=== PATIENT | male | born 1955 | race Two or more races ===

== ENCOUNTER 2024-12-16 11:06 | Inpatient (IN) | payer OTHER, MEDICARE ==
[~2024-12-16] VITALS: Ht 180.3 cm; Wt 74.6 kg
--- NOTE | 2024-12-16 11:16 | ED.PDOC ---
History of Present Illness HPI Comments 69 year male with a Hx of Parkinson's, Dementia, GERD, Thyroid, and High Lipids, was BIBA for the c/c of Generalized Weakness with associated /D. Pt states his symptoms has been onset for the past couple of days with no alleviating factors at this time. Pt states that is daughter took his BP at home and it read in the low 90's. EMS states pt is responding well to IV Fluids at this time. Pt denies any N/V or other symptoms or modifying factors reported at this time. Patient is alert and oriented x4 and has a stable gait. Time Seen by MD: 11:09 Reviewed Notes: Nurses Notes, Radiation Therapy Technologist Notes, Medications, Allergies Allergies: Coded Allergies: NO KNOWN ALLERGIES (Unverified , 12/16/24) Information Source: Patient, Emergency Med Personnel Mode of Arrival: EMS Severity: Moderate Timing: Days Duration: Since onset, Days Prehospital treatment: 12 Lead EKG, IVF Past Medical History PAST MEDICAL HISTORY: GERD, High Lipids, Thyroid Surgical History: Hernia Repair Family History Family History: Reviewed,noncontributory to illness, No family hx of Cancer, No family hx of DM, No family hx of Heart vimal, No family hx of HTN, No family hx ofKidney vimal, No family hx of Liver vimal, No family hx of Lung vimal, No family hx of Stroke Social History Smoker: Non-Smoker Alcohol: Denies ETOH Use Drugs: Denies Drug Use Lives In: Home Constitutional: reports: weakness; denies: chills, diaphoresis, fatigue, fever, malaise, sweats, others EENTM: denies: blurred vision, double vision, ear bleeding, ear discharge, ear drainage, ear pain, ear ringing, eye pain, eye redness, hearing loss, mouth pain, mouth swelling, nasal discharge, nose bleeding, nose congestion, nose pain, photophobia, tearing, throat pain, throat swelling, voice changes, others Respiratory: denies: cough, hemoptysis, orthopnea, SOB at rest, shortness of breath, SOB with excertion, stridor, wheezing, others Cardiovascular: denies: chest pain, dizzy spells, diaphoresis, Dyspnea on exertion, edema, irregular heart beat, left arm pain, lightheadedness, palpitations, PND, syncope, others Gastrointestinal: reports: diarrhea; denies: abdomen distended, abdominal pain, blood streaked bowels, constipated, dysphagia, difficulty swallowing, hematemesis, melena, nausea, poor appetite, poor fluid intake, rectal bleeding, rectal pain, vomiting, others Genitourinary: denies: burning, dysuria, flank pain, frequency, hematuria, incontinence, penile discharge, penile sore, pain, testicle pain, testicle swelling, urgency, others Neurological: denies: dizziness, fainting, headache, left sided numbness, left sided weakness, numbness, paresthesia, pre-existing deficit, right sided numbness, right sided weakness, seizure, speech problems, tingling, tremors, weakness, others Musculoskeletal: denies: back pain, gout, joint pain, joint swelling, muscle pain, muscle stiffness, neck pain, others Integumetry: denies: bruises, change in color, change in hair/nails, dryness, laceration, lesions, lumps, rash, wounds, others Allergic/Immunocompromised: denies: Difficulty Healing, Frequent Infections, Hives, Itching, others Hematologic/Lymphatic: denies: anemia, blood clots, easy bleeding, easy bruising, swollen glands, others Endocrine: denies: excessive hunger, excessive sweating, excessive thirst, excessive urination, flushing, intolerance to cold, intolerance to heat, unexplained weight gain, unexplained weight loss, others Psychiatric: denies: anxiety, bipolar disorder, depression, hopeless, panic disorder, schizophrenia, sleepless, suicidal, others All Other Systems: Reviewed and Negative Physical Exam General Appearance: Moderate Distress HEENT: Normal ENT Inspection, Pharynx Normal, TMs Normal Neck: Full Range of Motion, Non-Tender, Normal, Normal Inspection Respiratory: Chest Non-Tender, Lungs Clear, No Accessory Muscle Use, No Respiratory Distress, Normal Breath Sounds Cardiovascular: No Edema, No JVD, No Murmur, No Gallop, Normal Peripheral Pulses, Regular Rate/Rhythm Breast Exam: Deferred Gastrointestinal: Diffuse, No Organomegaly, No Pulsatile Mass, Normal Bowel Sounds, Soft, Tenderness Genitalia: Deferred Pelvic: Deferred Rectal: Deferred Extremities: No calf tenderness, Normal capillary refill, Normal inspection, Normal range of motion, Non-tender, No pedal edema Musculoskeletal : Apperance: Normal Neurologic: Alert, manager delivery II-XII nml as Tested, Motor Weakness, Normal Affect, Normal Mood, No Sensory Deficits Cerebellar Function: Normal Reflexes: Normal Skin: Dry, Pallor, Warm Lymphatic: No Adenopathy Was a procedure done? Was a procedure done?: No EKG EKG : Pulse Rate (adult): 62 Peterson: Normal Cardiac Rhythm: NSR Block: None ST: Nonsp Differential Dx Considerations may include: Generalized weakness, electrolyte imbalance, diarrhea, dehydration X-Ray, Labs, Meds, VS Vital Signs Date Time Temp Pulse Resp B/P (MAP) Pulse Ox O2 Delivery O2 Flow Rate FiO2 12/16/24 12:01 62 12/16/24 11:24 62 12/16/24 11:21 61 16 97 Room Air* 0 21 12/16/24 11:21 97.6 61 16 100/47 (64) 97 97.6 12/16/24 11:16 97.3 63 16 109/52 (71) 98 97.3 Lab Test 12/16/24 12:02 12/16/24 11:21 Range/Units White Blood Count 6.4 4.4-10.8 10^3/uL Red Blood Count 3.54 L 4.5-5.90 10^6/uL Hemoglobin 11.3 L 13.5-17.5 g/dL Hematocrit 32.7 L 41.0-53.0 % Mean Corpuscular Volume 92.4 80.0-100.0 fL Mean Corpuscular Hemoglobin 31.9 28.0-32.0 pg Mean Corpuscular Hemoglobin Concent 34.5 32.0-36.0 g/dL Red Cell Distribution Width 13.4 11.8-14.3 % Platelet Count 161 140-450 10^3/uL Mean Platelet Volume 9.7 6.9-10.8 fL Neutrophils (%) (Auto) 69.8 37.0-80.0 % Lymphocytes (%) (Auto) 18.4 10.0-50.0 % Monocytes (%) (Auto) 8.8 0.0-12.0 % Eosinophils (%) (Auto) 2.2 0.0-7.0 % Basophils (%) (Auto) 0.8 0.0-2.0 % Neutrophils # (Auto) 4.5 1.6-8.6 10 ^3/uL Lymphocytes # (Auto) 1.2 0.4-5.4 10 ^3/uL Monocytes # (Auto) 0.6 0-1.3 10 ^3/uL Eosinophils # (Auto) 0.1 0-0.8 10 ^3/uL Basophils # (Auto) 0 0-0.2 10 ^3/uL Nucleated Red Blood Cells 0.0 % Sodium Level 146 H 136-145 mmol/L Potassium Level 4.7 3.5-5.1 mmol/L Chloride Level 114 H 98-107 mmol/L Carbon Dioxide Level 26 20-31 mmol/L Anion Gap 6 5-15 Blood Urea Nitrogen 28 H 9-23 mg/dL Creatinine 1.65 H 0.700-1.30 mg/dL Glomerular Filtration Rate Calc 44 >90 mL/min BUN/Creatinine Ratio 17.0 10.0-20.0 Serum Glucose 73 L 74-106 mg/dL Calcium Level 8.9 8.7-10.4 mg/dL Total Bilirubin 0.4 0.2-1.0 mg/dL Aspartate Amino Transferase (AST) 11 L 13-40 U/L Alanine Aminotransferase (ALT) < 9 7-40 U/L Alkaline Phosphatase 50 46-116 U/L Total Protein 6.1 5.7-8.2 g/dL Albumin 4.0 3.2-4.8 g/dL POC Glucose 125 H 70-106 mg/dl Current Medications Medications (Trade) Dose Ordered Sig/Roxanna Route Start Time Stop Time Status Last Admin Sodium Chloride 500 ml @ 500 mls/hr Q1H ONCE IV 12/16/24 11:30 12/16/24 12:29 DC 12/16/24 11:35 IMPRESSION: 1. Nonspecific nondilated fluid-filled small bowel loops. Findings may be seen with ileus or enteritis in the appropriate clinical setting. No small bowel obstruction. 2. Bilateral nonobstructing renal calculi. No hydronephrosis or obstructing calculi visualized. 3. Prominent sclerosis and trabecular thickening in the right iliac bone, most consistent with paget's disease. Correlate with clinical findings. 4. Mild circumferential thickening of the bladder wall is nonspecific. Correlate clinically to exclude cystitis. 5. Additional findings as described above. The patient's CBC is within normal limits The chemistry panel is within normal limits The patient had an IV Hep-Lock with normal saline at 500 cc We are going to admit the patient with a diagnosis intractable abdominal pain and ileus Images Reviewed?: Images reviewed and evaluated by me Time of 1ST Reevaluation: 11:40 Reevaluation 1ST: Unchanged Patient Education/Counseling: Diagnosis, Treatment, Prognosis Family Education/Counseling: No Family Present SEPSIS Sepsis Screen Physician Orders Urinalysis (12/16/24 11:22) Heplock Iv (12/16/24 11:22) Cheese Cutter (12/16/24 11:22) Blood Pressure (12/16/24 11:22) Pulse Oximetry (12/16/24 11:22) Clostridium Difficile Toxin (12/16/24 11:22) Ct Ab Pel Wo Con-No Oral Or Iv (12/16/24 12:01) Vital Signs Date Time Temp Pulse Resp B/P (MAP) Pulse Ox O2 Delivery O2 Flow Rate FiO2 12/16/24 12:01 62 12/16/24 11:24 62 12/16/24 11:21 61 16 97 Room Air* 0 21 12/16/24 11:21 97.6 61 16 100/47 (64) 97 97.6 12/16/24 11:16 97.3 63 16 109/52 (71) 98 97.3 Laboratory Tests Test 12/16/24 12:02 White Blood Count 6.4 10^3/uL (4.4-10.8) Medications Medications Dose Ordered Sig/Roxanna Route Start Time Stop Time Status Last Admin Dose Admin Sodium Chloride 500 ml @ 500 mls/hr Q1H ONCE IV 12/16/24 11:30 12/16/24 12:29 DC 12/16/24 11:35 Departure 1 Departure Time of Disposition: 16:03 Impression: Primary Impression: Intractable abdominal pain Additional Impressions: Ileus Generalized weakness Disposition: 09 ADMITTED INPATIENT Admit to: Med Surg Condition: Fair Critical Care Note Critical Care Time?: No Stability Stability form required: Yes Unstable for transfer: ED Physician Assesment (Clinical assesment) Heart Score Heart Score: Heart Score Response (Comments) Value History N/A 0 EKG N/A 0 Age N/A 0 Risk Factors N/A 0 Troponin N/A 0 Total 0 I personally scribed for EVETTE CHAKRABORTY MD ([email or web address]) on 12/16/24 at 11:16. Electronically submitted by James Galvez ([email or web address]). I personally scribed for EVETTE CHAKRABORTY MD ([email or web address]) on 12/16/24 at 13:22. Electronically submitted by James Galvez ([email or web address]). EVETTE CHAKRABORTY MD Dec 16, 2024 11:16
[2024-12-16 11:21] VITALS: PULSE 61; RESP 16; O2SAT 97
[2024-12-16] MEDS: SODIUM CHLORIDE 0.9% 500 ML IV ONE (11:35)
[2024-12-16 12:17] LABS: Hematocrit 32.7 % (41.0-53.0); Hemoglobin 11.3 g/dL (13.5-17.5); Mean Corpuscular Hemoglobin 31.9 pg (28.0-32.0); Mean Corpuscular Volume 92.4 fL (80.0-100.0); Nucleated Red Blood Cells % 0.0 %
[2024-12-16 12:30] LABS: Albumin 4.0 g/dL (3.2-4.8); Alkaline Phosphatase 50 U/L (46-116); Anion Gap 6 (5-15); BUN/Creatinine Ratio 17.0 (10.0-20.0); Calcium 8.9 mg/dL (8.7-10.4); Carbon Dioxide 26 mmol/L (20-31); Potassium 4.7 mmol/L (3.5-5.1); Total Protein 6.1 g/dL (5.7-8.2)
[2024-12-16 12:31] LABS: Alanine Aminotransferase < 9 U/L (7-40); Bilirubin, Total 0.4 mg/dL (0.2-1.0); Blood Urea Nitrogen 28 mg/dL (9-23); Chloride 114 mmol/L (98-107); Glucose 73 mg/dL (74-106); Sodium 146 mmol/L (136-145)
--- NOTE | 2024-12-16 12:46 | ECG ---
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
--- NOTE | 2024-12-16 13:08 | DVH ---
CLINICAL INFORMATION: Abdominal pain. TECHNIQUE: Axial CT images of the abdomen and pelvis were obtained without IV contrast. Coronal and s agittal reformatted images were obtained, reviewed, and stored. Evaluation of the parenchymal organs is limited without IV contrast. Evaluation of the bowel and mesentery is limited without oral contras t. All CT scans at this medical facility are performed using dose modulation techniques as appropriat e to a performed exam including the following: Automated exposure control was utilized; adjustment of the MA and/or KV according to patient size; and use of iterative reconstruction technique. CTDIvol = 9.74 mGy DLP = 597.69 mGy-cm COMPARISON: None FINDINGS: Lung bases: Mild atelectasis in the lung bases. Liver: Grossly unremarkable in its noncontrast enhanced appearance. No abnormal density or focal lesi on identified. Biliary: No calcified gallstones or biliary ductal dilatation. Spleen: Unremarkable. Pancreas: Grossly unremarkable in its noncontrast enhanced appearance. Adrenal glands: Unremarkable. No mass. Kidneys: No hydronephrosis. Small bilateral nonobstructing renal calculi. No obstructing calculi vis ualized. Aorta/Vascular: Dense atherosclerotic calcification. No abdominal aortic aneurysm. Retroperitoneum: No mass or lymphadenopathy. Bowel/mesentery: Nonspecific nondilated fluid-filled small bowel loops. No small bowel obstruction. A ppendix is visualized and appears unremarkable. Moderate stool throughout the colon. Pelvic organs: Grossly unremarkable. Bladder: Mild circumferential thickening of the bladder wall. Abdominal wall: No mass or hernia. Bones: There is prominent sclerosis and trabecular thickening in the right iliac bone, most consisten t with Paget's disease. IMPRESSION: 1. Nonspecific nondilated fluid-filled small bowel loops. Findings may be seen with ileus or enteriti s in the appropriate clinical setting. No small bowel obstruction. 2. Bilateral nonobstructing renal calculi. No hydronephrosis or obstructing calculi visualized. 3. Prominent sclerosis and trabecular thickening in the right iliac bone, most consistent with paget' s disease. Correlate with clinical findings. 4. Mild circumferential thickening of the bladder wall is nonspecific. Correlate clinically to exclu de cystitis. 5. Additional findings as described above.
[2024-12-16 17:08] LABS: Urine Protein, UAD Negative (Negative)
[2024-12-16] MEDS ORDERED: ONDANSETRON HCL 4 MG/2 ML VIAL IV PRN (17:15)
[2024-12-16] MEDS ORDERED: ACETAMINOPHEN 325 MG TAB PO PRN (17:15)
[2024-12-16] MEDS ORDERED: DOCUSATE SOD 100 MG CAP PO PRN (17:15)
[2024-12-16] MEDS ORDERED: LEVO75TA6 PO (17:16)
[2024-12-16] MEDS ORDERED: LATA0.008 EACHEYE (17:16)
[2024-12-16] MEDS ORDERED: ROTI1DIS TD (17:16)
[2024-12-16] MEDS ORDERED: LAMO25TA27 PO (17:16)
[2024-12-16] MEDS ORDERED: LACT10SO3 PO (17:16)
[2024-12-16] MEDS ORDERED: LOSA-533 PO (17:16)
[2024-12-16] MEDS ORDERED: AMLO1TAB22 PO (17:16)
[2024-12-16] MEDS ORDERED: MIRT1TAB38 PO (17:16)
[2024-12-16] MEDS ORDERED: CARB1TAB73 PO (17:16)
[2024-12-16] MEDS ORDERED: TERA2CAP79 PO (17:16)
[2024-12-16] MEDS ORDERED: MEMA1TAB3 PO (17:16)
[2024-12-16] MEDS ORDERED: GAB100C GT (17:16)
[2024-12-16] MEDS ORDERED: CARB0.5D35 OP (17:16)
[2024-12-16] MEDS ORDERED: CITA10TA6 PO (17:16)
--- NOTE | 2024-12-16 17:38 | DVHHP2 ---
History of Present Illness Reason for Visit: Generalized weakness History of Present Illness Robert Ruffin is a 69-year-old male with past medical history of hypertension, hyperlipidemia, hypothyroidism, Parkinson's disease, dementia, and GERD, who came to the hospital due to generalized weakness. Patient lives with his daughter. She states [facility], when they did his blood pressure for the appointment it was reading in the 70's. [facility]. Patient has been experiencing generalized weakness for the last couple of days prior to this, as well as abdominal pain and constipation. The daughter states in the past he has had weakness and dizziness from sitting to standing positions. She states when that has happened he is usually dehydrated. Cardiovascular: HTN, hyperipidemia FAVOR MAKER: Dementia Endocrine: Hypothyroidism Past Surgical History: Hernia Repair, Other (left shoulder, thyroidectomy) Review of Systems Constitutional: Yes: Weakness; No: Fever, Chills, Sweats, Malaise, Other Eyes: No: Pain, Vision change, Conjunctivae inflammation, Eyelid inflammation, Other, Redness ENT: No: Ear pain, Ear discharge, Nose pain, Nose discharge, Nose congestion, Mouth pain, Mouth swelling, Throat pain, Throat swelling, Other Respiratory: No: Cough, Dry, Shortness of breath, SOB with excertion, Wheezing, Hemoptysis, Pleuritic Pain, Sputum, Wheezing, Other Cardiovascular: Other (hypotension); No: Chest Pain, Palpitations, Orthopnea, Paroxysmal Noc. Dyspnea, Edema, Lt Headedness Gastrointestinal: Abdominal Pain; No: Nausea, Vomiting, Diarrhea, Constipation, Melena, Hematochezia, Other Genitourinary: No Dysuria, No Frequency, No Incontinence, No Hematuria, No Retention, No Other Musculoskeletal: No: other, neck pain, shoulder pain, arm pain, back pain, hand pain, leg pain, foot pain Skin: No: Rash, Lesions, Jaundice, Bruising, Other Neurological: Weakness; No: Numbness, Incoordination, Change in speech, Confusion, Seizures, Other Allergies: Coded Allergies: NO KNOWN ALLERGIES (Unverified , 12/16/24) Medications Current Medications Medications Dose Ordered Sig/Roxanna Route Start Time Stop Time Status Last Admin Dose Admin Sodium Chloride 1,000 ml @ 100 mls/hr Q10H IV 12/16/24 17:15 UNV Ondansetron HCl 4 mg Q4HP PRN IV 12/16/24 17:15 UNV Docusate Sodium 100 mg BIDPRN PRN PO 12/16/24 17:15 UNV Acetaminophen 650 mg Q6HP PRN PO 12/16/24 17:15 UNV Lactulose 30 ml BID PO 12/16/24 22:00 UNV Exam Vital Signs Vital Signs Date Time Temp Pulse Resp B/P (MAP) Pulse Ox O2 Delivery O2 Flow Rate FiO2 12/16/24 12:01 62 12/16/24 11:21 16 97 Room Air* 0 21 12/16/24 11:21 97.6 100/47 (64) 97.6 General Appearance: Alert, Oriented X3, Cooperative, moderate distress HEENT: Atraumatic, PERRLA Respiratory: Clear to auscultation, Normal air movement Cardiovascular: Regular rate, Normal S1, Normal S2, No murmurs Abdominal: Soft, Other (hypoactive bowel sounds) Extremities: No clubbing, No cyanosis, No edema, Normal pulses, No tenderness/swelling Skin: No rashes, No breakdown, No significant lesion Neuro: Normal gait, Normal speech, Strength at 5/5 X4 ext, Normal tone, Sensation intact Psych/Mental Status: Mental status NL Labs/Xrays Labs Test 12/16/24 17:01 12/16/24 12:02 12/16/24 11:21 Range/Units Urine Color Colorless Yellow Urine Clarity Clear Clear Urine pH 5.5 5.0-9.0 Urine Specific [place] 1.004 1.001-1.035 Urine Protein Negative Negative Urine Ketones Negative Negative Urine Blood 1+ H Negative /uL Urine Nitrite Negative Negative Urine Bilirubin Negative Negative Urine Urobilinogen Normal Negative mg/dL Urine Leukocyte Esterase Negative Negative /uL Urine RBC 1 0 - 3 /hpf Urine Microscopic WBC < 1 0-3 /HPF Urine Squamous Epithelial Cells Few <5 /hpf Urine Bacteria None seen None Seen /hpf Urine Glucose Normal Normal mg/dL White Blood Count 6.4 4.4-10.8 10^3/uL Red Blood Count 3.54 L 4.5-5.90 10^6/uL Hemoglobin 11.3 L 13.5-17.5 g/dL Hematocrit 32.7 L 41.0-53.0 % Mean Corpuscular Volume 92.4 80.0-100.0 fL Mean Corpuscular Hemoglobin 31.9 28.0-32.0 pg Mean Corpuscular Hemoglobin Concent 34.5 32.0-36.0 g/dL Red Cell Distribution Width 13.4 11.8-14.3 % Platelet Count 161 140-450 10^3/uL Mean Platelet Volume 9.7 6.9-10.8 fL Neutrophils (%) (Auto) 69.8 37.0-80.0 % Lymphocytes (%) (Auto) 18.4 10.0-50.0 % Monocytes (%) (Auto) 8.8 0.0-12.0 % Eosinophils (%) (Auto) 2.2 0.0-7.0 % Basophils (%) (Auto) 0.8 0.0-2.0 % Neutrophils # (Auto) 4.5 1.6-8.6 10 ^3/uL Lymphocytes # (Auto) 1.2 0.4-5.4 10 ^3/uL Monocytes # (Auto) 0.6 0-1.3 10 ^3/uL Eosinophils # (Auto) 0.1 0-0.8 10 ^3/uL Basophils # (Auto) 0 0-0.2 10 ^3/uL Nucleated Red Blood Cells 0.0 % Sodium Level 146 H 136-145 mmol/L Potassium Level 4.7 3.5-5.1 mmol/L Chloride Level 114 H 98-107 mmol/L Carbon Dioxide Level 26 20-31 mmol/L Anion Gap 6 5-15 Blood Urea Nitrogen 28 H 9-23 mg/dL Creatinine 1.65 H 0.700-1.30 mg/dL Glomerular Filtration Rate Calc 44 >90 mL/min BUN/Creatinine Ratio 17.0 10.0-20.0 Serum Glucose 73 L 74-106 mg/dL Calcium Level 8.9 8.7-10.4 mg/dL Total Bilirubin 0.4 0.2-1.0 mg/dL Aspartate Amino Transferase (AST) 11 L 13-40 U/L Alanine Aminotransferase (ALT) < 9 7-40 U/L Alkaline Phosphatase 50 46-116 U/L Total Protein 6.1 5.7-8.2 g/dL Albumin 4.0 3.2-4.8 g/dL POC Glucose 125 H 70-106 mg/dl TECHNIQUE: Axial CT images of the abdomen and pelvis were obtained without IV contrast. FINDINGS: Lung bases: Mild atelectasis in the lung bases. Liver: Grossly unremarkable in its noncontrast enhanced appearance. No abnormal density or focal lesion identified. Biliary: No calcified gallstones or biliary ductal dilatation. Spleen: Unremarkable. Pancreas: Grossly unremarkable in its noncontrast enhanced appearance. Adrenal glands: Unremarkable. No mass. Kidneys: No hydronephrosis. Small bilateral nonobstructing renal calculi. No obstructing calculi visualized. Aorta/Vascular: Dense atherosclerotic calcification. No abdominal aortic aneurysm. Retroperitoneum: No mass or lymphadenopathy. Bowel/mesentery: Nonspecific nondilated fluid-filled small bowel loops. No small bowel obstruction. Appendix is visualized and appears unremarkable. Moderate stool throughout the colon. Pelvic organs: Grossly unremarkable. Bladder: Mild circumferential thickening of the bladder wall. Abdominal wall: No mass or hernia. Bones: There is prominent sclerosis and trabecular thickening in the right iliac bone, most consistent with Paget's disease. IMPRESSION: 1. Nonspecific nondilated fluid-filled small bowel loops. Findings may be seen with ileus or enteritis in the appropriate clinical setting. No small bowel obstruction. 2. Bilateral nonobstructing renal calculi. No hydronephrosis or obstructing calculi visualized. 3. Prominent sclerosis and trabecular thickening in the right iliac bone, most consistent with paget's disease. Correlate with clinical findings. 4. Mild circumferential thickening of the bladder wall is nonspecific. Correlate clinically to exclude cystitis. 5. Additional findings as described above. Assessment/Plan Assessment/Plan Assessment: Ileus, Generalized weakness, Hypotension, Dehydration, Parkinson's disease, Hypertension, Hypothyroidism, Dementia, Hyperlipidemia, Plan: Admit to Med-Surg, NPO, Glycerin suppository, IV hydration, IV antibiotics, Consider NG tube if symptoms persist, Consider surgical consult if symptoms worsen, Home medications reconciled, Plan discussed with: Patient, Daughter My Orders Orders - TYRA MORTENSEN Procedure Category Date Status Time Admit ADMIT 12/16/24 Transmitted 17:03 Code Status CODE 12/16/24 Transmitted 17:03 Sodium Chloride 0.9% PHA 12/16/24 Logged 17:15 Ondansetron Hcl PHA 12/16/24 Logged (Zofran) 17:15 Docusate Sodium PHA 12/16/24 Logged Capsule (Colace 17:15 Complete Blood Count LAB 12/17/24 Verified 04:00 Comprehensive LAB 12/17/24 Verified Metabolic Panel 04:00 Condition: Serious JOSE RAUL 12/16/24 In Process 17:03 Acetaminophen Tablet PHA 12/16/24 Logged (Tylenol Tablet) 17:15 Lactulose Oral PHA 12/16/24 Logged 17:15 Lactulose Oral PHA 12/16/24 Logged 22:00 Glycerin Adult PHA 12/16/24 Logged Suppository (Glycerin 17:15 Kub Abdomen Single XY 12/17/24 Logged View 04:00 Npo Except For JOSE RAUL 12/16/24 Verified Medications 17:16 Npo (Nothing By DIET 12/16/24 Verified Mouth) Diet Dinner Amlodipine Tablet PHA 12/16/24 Verified (Norvasc Tablet) 22:00 Gabapentin Capsule PHA 12/16/24 Verified (Neurontin Capsule) 22:00 Latanoprost (Xalatan) PHA 12/16/24 Verified 18:00 Losartan Tablet PHA 12/17/24 Verified (Cozaar Tablet) 12:00 Memantine Tablet PHA 12/16/24 Verified (Namenda Tablet) 22:00 (NF) PHA 12/16/24 Verified Carbidopa-Levodopa 18:00 (NF) PHA 12/16/24 Verified Carboxymethylcellulose 22:00 (Nf) Citalopram PHA 12/16/24 Verified Hydrobromide 22:00 (Nf) Lactulose PHA 12/17/24 Verified 10:00 (Nf) Lamotrigine PHA 12/17/24 Verified 10:00 (Nf) Levothyroxine PHA 12/17/24 Verified Sodium 10:00 (Nf) Mirtazapine PHA 12/16/24 Verified (Mirtazapine Oral 18:00 (Nf) Rotigotine PHA 12/16/24 Verified (Neupro) 22:00 (Nf) Terazosin Hcl PHA 12/16/24 Verified 22:00 Date of Service: Dec 16, 2024 Billing Provider: TYRA MORTENSEN Common Visit Codes: [id number] INP/OBS CARE (MOD) TYRA MORTENSEN Dec 16, 2024 17:38
[2024-12-16] MEDS: CARBIDOPA W LEVODOPA 25/250mg TABLET PO SCH (18:00)
[2024-12-16] MEDS ORDERED: CARBIDOPA LEVODOPA PO SCH (18:00)
[2024-12-16] MEDS: SODIUM CHLORIDE 0.9% 1,000 ML IV SCH (18:15)
[2024-12-16] MEDS: LACTULOSE 20Gm/30ML SOLN PO ONE (18:18)
[2024-12-16] MEDS: cefTRIAXone 1GM/50ML D5W 50 ML IV ONE (18:23)
[2024-12-16] MEDS: LATANOPROST 0.005 % OPTH(EYE) SOL 2.5ML EACHEYE SCH (18:32)
[2024-12-16] MEDS: GLYCERIN ADULT RECTAL SUPP PR ONE (18:36)
[2024-12-16] MEDS: TERAZOSIN HCL 1 MG CAP PO SCH (22:00)
[2024-12-16] MEDS ORDERED: TERAZOSIN HCL 1 MG PO SCH (22:00)
[2024-12-16] MEDS: CITALOPRAM HYDROBR 20 MG TAB PO SCH (22:00)
[2024-12-16] MEDS ORDERED: CITALOPRAM HYDROBROMIDE 10 MG PO SCH (22:00)
[2024-12-16 22:31] VITALS: BP 115/71; PULSE 55; RESP 18; TEMP 97.5; O2SAT 100
[2024-12-17] MEDS: GABAPENTIN 100 MG CAP GT SCH (00:34)
[2024-12-17] MEDS: LACTULOSE 20Gm/30ML SOLN PO SCH (00:34)
[2024-12-17] MEDS: ROTIGOTINE 1 MG/24 HR TD SCH (00:40)
[2024-12-17] MEDS: MEMANTINE HCL 5 MG TAB PO SCH (00:49)
[2024-12-17 05:00] VITALS: BP 156/87; PULSE 59; RESP 17; TEMP 97.4; O2SAT 98
[2024-12-17 06:25] LABS: Hematocrit 35.4 % (41.0-53.0); Hemoglobin 12.0 g/dL (13.5-17.5); Mean Corpuscular Hemoglobin 31.4 pg (28.0-32.0); Mean Corpuscular Volume 92.8 fL (80.0-100.0); Nucleated Red Blood Cells % 0.1 %
--- NOTE | 2024-12-17 06:38 | DVH ---
Exam: XY KUB ABDOMEN SINGLE VIEW Indication: Ileus Comparison: None Technique: Single radiographic view of the abdomen. Findings: Moderately distended gas and stool-filled segments of bowel throughout the abdomen without evidence o f obstruction. No air-fluid levels are identified. There is no definite evidence for pneumoperitoneum. No abnormal calcifications noted. Impression: 1. Nonobstructive bowel gas pattern noted.
[2024-12-17 06:46] LABS: Albumin 3.9 g/dL (3.2-4.8); Alkaline Phosphatase 50 U/L (46-116); Anion Gap 9 (5-15); BUN/Creatinine Ratio 19.5 (10.0-20.0); Blood Urea Nitrogen 23 mg/dL (9-23); Carbon Dioxide 23 mmol/L (20-31); Glucose 81 mg/dL (74-106); Total Protein 5.9 g/dL (5.7-8.2)
[2024-12-17 06:47] LABS: Bilirubin, Total 0.4 mg/dL (0.2-1.0)
[2024-12-17 06:55] LABS: Alanine Aminotransferase < 9 U/L (7-40); Calcium 8.6 mg/dL (8.7-10.4); Chloride 114 mmol/L (98-107); Potassium 3.5 mmol/L (3.5-5.1); Sodium 146 mmol/L (136-145)
[2024-12-17 08:30] VITALS: BP 142/86; PULSE 73; RESP 18; TEMP 98.4; O2SAT 94
[2024-12-17] MEDS: cefTRIAXone 1GM/50ML D5W 50 ML IV SCH (09:45)
[2024-12-17] MEDS: lamoTRIgine 25 MG TAB PO SCH (09:46)
[2024-12-17] MEDS: LEVOTHYROXINE SODIUM 25 MCG TAB PO SCH (09:46)
[2024-12-17] MEDS ORDERED: LACTULOSE 20 GM PO SCH (10:00)
[2024-12-17] MEDS ORDERED: PATIENTS OWN MEDICATION (Levothyroxine Sodium 1 TAB) PO SCH (10:00)
[2024-12-17] MEDS ORDERED: LAMOTRIGINE 50 MG PO SCH (10:00)
[2024-12-17 12:30] VITALS: BP 117/76; PULSE 85; RESP 18; TEMP 97; O2SAT 97
[2024-12-17] MEDS: LOSARTAN POTASSIUM 25 MG TAB PO SCH (12:42)
--- NOTE | 2024-12-17 15:32 | DVHPN2 ---
Subjective Patient continues to report having some abdominal pain. Reviewed: Care Plan, H&P, Labs, Medications Changes from previous H/P or p: No Changes General: Per HPI Eyes: No Pain, No Vision change, No Conjunctivae inflammation, No Eyelid inflammation, No Other, No Redness ENT: No Ear pain, No Ear discharge, No Nose pain, No Nose discharge, No Nose congestion, No Mouth pain, No Mouth swelling, No Throat pain, No Throat swelling, No Other Cardiovascular: No Chest Pain, No Palpitations, No Orthopnea, No Paroxysmal Noc. Dyspnea, No Edema, No Lt Headedness; Other (hypotension) Respiratory: No Cough, No Dry, No Shortness of breath, No SOB with excertion, No Wheezing, No Hemoptysis, No Pleuritic Pain, No Sputum, No Other Gastrointestinal: No Nausea, No Vomiting; Abdominal Pain; No Diarrhea, No Constipation, No Melena, No Hematochezia, No Other Genitourinary: No Dysuria, No Frequency, No Incontinence, No Hematuria, No Retention, No Other Musculoskeletal: No other, No neck pain, No shoulder pain, No arm pain, No back pain, No hand pain, No leg pain, No foot pain Skin: No Rash, No Lesions, No Jaundice, No Bruising, No Other Objective Vitals Vital Signs Date Time Temp Pulse Resp B/P (MAP) Pulse Ox O2 Delivery O2 Flow Rate FiO2 12/17/24 12:42 127/79 12/17/24 12:30 97.0 85 18 97 97.0 12/17/24 08:00 Room Air* 0 21 Intake/Output Intake and Output 12/17/24 07:00 Intake Total 550 ml Output Total 250 ml Balance 300 ml Intake IV Total 550 ml Output Urine Total 250 ml General Appearance: Alert, Oriented X3, Cooperative, mild distress HEENT: Atraumatic, PERRLA Lungs: Clear to auscultation, Normal air movement Cardiovascular: Normal S1, Normal S2 Abdomen: Normal bowel sounds, Soft, No tenderness Musculoskeletal: Normal sensory function, Normal motor function Neuro: Normal gait, Normal speech Skin: Dry, Intact Psych/Mental Status: Mental status NL, Mood NL Medications Current Medications Medications Dose Ordered Sig/Roxanna Route Start Time Stop Time Status Last Admin Dose Admin Sodium Chloride 1,000 ml @ 100 mls/hr Q10H IV 12/16/24 17:15 12/17/24 09:54 100 MLS/HR Ondansetron HCl 4 mg Q4HP PRN IV 12/16/24 17:15 Docusate Sodium 100 mg BIDPRN PRN PO 12/16/24 17:15 Acetaminophen 650 mg Q6HP PRN PO 12/16/24 17:15 Lactulose 30 ml BID PO 12/16/24 22:00 12/17/24 09:46 30 ML Amlodipine Besylate 5 mg HS PO 12/16/24 22:00 Gabapentin 200 mg BID GT 12/16/24 22:00 12/17/24 09:46 200 MG Latanoprost 1 drop QPM EACHEYE 12/16/24 18:00 12/16/24 18:32 1 DROP Losartan Potassium 25 mg DAILY@LUNCH PO 12/17/24 12:00 12/17/24 12:42 25 MG Memantine 5 mg BID PO 12/16/24 22:00 12/17/24 09:46 5 MG Patient Own Medication 0.5 % HS OP 12/17/24 22:00 Patient Own Medication 20 gm DAILY PO 12/17/24 10:00 UNV Patient Own Medication 1 tab QPM PO 12/17/24 18:00 Patient Own Medication 1 mg HS TD 12/16/24 22:00 12/17/24 00:40 1 MG Ceftriaxone Sodium 50 ml @ 100 mls/hr DAILY@09 IV 12/17/24 09:00 12/17/24 09:45 100 MLS/HR Metronidazole 100 ml @ 100 mls/hr Q8HR IV 12/16/24 22:00 12/17/24 14:29 100 MLS/HR Carbidopa/Levodopa 1 tab 5XD PO 12/16/24 18:00 12/17/24 14:29 1 TAB Citalopram Hydrobromide 10 mg BID PO 12/16/24 22:00 12/17/24 09:46 10 MG Lamotrigine 50 mg DAILY PO 12/17/24 10:00 12/17/24 09:46 50 MG Levothyroxine Sodium 75 mcg DAILY PO 12/17/24 10:00 12/17/24 09:46 75 MCG Terazosin HCl 1 mg HS PO 12/16/24 22:00 Laboratory Results Laboratory Tests 12/17/24 05:21 Chemistry Test 12/17/24 05:21 Albumin 3.9 g/dL (3.2-4.8) Calcium Level 8.6 mg/dL (8.7-10.4) L Total Protein 5.9 g/dL (5.7-8.2) LFT Test 12/17/24 05:21 Alanine Aminotransferase (ALT) < 9 U/L (7-40) Alkaline Phosphatase 50 U/L (46-116) Aspartate Amino Transferase (AST) 13 U/L (13-40) Total Bilirubin 0.4 mg/dL (0.2-1.0) Urinalysis Test 12/16/24 17:01 Urine Color Colorless (Yellow) Urine Clarity Clear (Clear) Urine pH 5.5 (5.0-9.0) Urine Specific [place] 1.004 (1.001-1.035) Urine Protein Negative (Negative) Urine Ketones Negative (Negative) Urine Blood 1+ /uL (Negative) H Urine Nitrite Negative (Negative) Urine Bilirubin Negative (Negative) Urine Urobilinogen Normal mg/dL (Negative) Urine Leukocyte Esterase Negative /uL (Negative) Urine RBC 1 /hpf (0 - 3) Urine Microscopic WBC < 1 /HPF (0-3) Urine Squamous Epithelial Cells Few /hpf (<5) Urine Bacteria None seen /hpf (None Seen) Urine Glucose Normal mg/dL (Normal) Labs and/or images reviewed: Labs reviewed by me, Image(s) reviewed by me Assessment/Plan Assessment/Plan Impression: -enteritis/colitis -dementia -probable BPH -primary hypertension -acute kidney injury, vasomotor nephropathy -hypovolemic hypotension Plan: -continue IV fluids -start clear liquid diet -continue antibiotic therapy with Rocephin and Flagyl -continue home medications -check ESR, CRP, BPH -repeat labs in a.m. Total time spent with patient discussing and formulating plan of care: 35 minutes. This medical document was created using an electronic medical record system with [employer] dictation system. Although this document has been carefully reviewed, there may still be some phonetic and typographical errors. These areas are purely typographical due to imperfections of the software programs, and do not reflect any compromise in the patient's medical care. Plan discussed with: Patient, Other (RN) My Orders Orders - GREG ADAMS NP Procedure Category Date Status Time Clear Liq Diet DIET 12/17/24 Transmitted Dinner Complete Blood Count LAB 12/18/24 Verified 04:00 Basic Metabolic Panel LAB 12/18/24 Verified 04:00 Psa Total+% Free LAB 12/17/24 Transmitted 15:28 Erythrocyte LAB 12/17/24 Transmitted Sedimentation Rate 15:28 C-Reactive Protein LAB 12/17/24 Transmitted 15:28 Date of Service: Dec 17, 2024 Billing Provider: GREG ADAMS NP Common Visit Codes: [id number] INP/OBS CARE(HIGH) GREG ADAMS NP Dec 17, 2024 15:32
[2024-12-17 16:30] VITALS: BP 98/56; PULSE 75; RESP 14; TEMP 97.7; O2SAT 98
[2024-12-17] MEDS: MIRTAZAPINE PO SCH (18:00)
[2024-12-17 21:00] VITALS: BP 139/81; PULSE 56; RESP 20; TEMP 98.7; O2SAT 99
[2024-12-17] MEDS: CARBOXYMETHYLCELLULOSE SODIUM 0.5% OP SCH (22:44)
[2024-12-18] VITALS (7 sets, daily range): BP systolic 112–136; BP diastolic 68–84; PULSE 59–84; RESP 15–20; TEMP 36.8; O2SAT 98–99
[2024-12-18 05:39] LABS: Hematocrit 31.4 % (41.0-53.0); Hemoglobin 10.8 g/dL (13.5-17.5); Mean Corpuscular Hemoglobin 31.8 pg (28.0-32.0); Mean Corpuscular Volume 92.4 fL (80.0-100.0); Nucleated Red Blood Cells % 0.1 %
[2024-12-18 05:52] LABS: Anion Gap 8 (5-15); Carbon Dioxide 24 mmol/L (20-31)
[2024-12-18 05:57] LABS: BUN/Creatinine Ratio 13.9 (10.0-20.0); Blood Urea Nitrogen 14 mg/dL (9-23); Glucose 87 mg/dL (74-106)
[2024-12-18 06:07] LABS: Calcium 8.5 mg/dL (8.7-10.4); Chloride 114 mmol/L (98-107); Potassium 3.1 mmol/L (3.5-5.1); Sodium 146 mmol/L (136-145)
--- NOTE | 2024-12-18 13:50 | DVHDS2 ---
Discharge Summary Date of Admission Dec 16, 2024 at 17:03 Date of Discharge: Dec 18, 2024 Admitting Diagnosis Questionable ileus Labs/Diagnostic Data: Laboratory Results Test 12/18/24 04:50 12/17/24 15:49 12/17/24 05:21 12/16/24 17:01 White Blood Count 4.9 10^3/uL (4.4-10.8) Red Blood Count 3.40 10^6/uL (4.5-5.90) Hemoglobin 10.8 g/dL (13.5-17.5) Hematocrit 31.4 % (41.0-53.0) Mean Corpuscular Volume 92.4 fL (80.0-100.0) Mean Corpuscular Hemoglobin 31.8 pg (28.0-32.0) Mean Corpuscular Hemoglobin Concent 34.4 g/dL (32.0-36.0) Red Cell Distribution Width 13.3 % (11.8-14.3) Platelet Count 131 10^3/uL (140-450) Mean Platelet Volume 9.8 fL (6.9-10.8) Neutrophils (%) (Auto) 61.7 % (37.0-80.0) Lymphocytes (%) (Auto) 25.5 % (10.0-50.0) Monocytes (%) (Auto) 6.9 % (0.0-12.0) Eosinophils (%) (Auto) 5.4 % (0.0-7.0) Basophils (%) (Auto) 0.5 % (0.0-2.0) Neutrophils # (Auto) 3.1 10 ^3/uL (1.6-8.6) Lymphocytes # (Auto) 1.3 10 ^3/uL (0.4-5.4) Monocytes # (Auto) 0.3 10 ^3/uL (0-1.3) Eosinophils # (Auto) 0.3 10 ^3/uL (0-0.8) Basophils # (Auto) 0 10 ^3/uL (0-0.2) Nucleated Red Blood Cells 0.1 % Sodium Level 146 mmol/L (136-145) Potassium Level 3.1 mmol/L (3.5-5.1) Chloride Level 114 mmol/L (98-107) Carbon Dioxide Level 24 mmol/L (20-31) Anion Gap 8 (5-15) Blood Urea Nitrogen 14 mg/dL (9-23) Creatinine 1.01 mg/dL (0.700-1.30) Glomerular Filtration Rate Calc 80 mL/min (>90) BUN/Creatinine Ratio 13.9 (10.0-20.0) Serum Glucose 87 mg/dL (74-106) Calcium Level 8.5 mg/dL (8.7-10.4) Erythrocyte Sedimentation Rate 7 mm/hr (0-20) Total Bilirubin 0.4 mg/dL (0.2-1.0) Aspartate Amino Transferase (AST) 13 U/L (13-40) Alanine Aminotransferase (ALT) < 9 U/L (7-40) Alkaline Phosphatase 50 U/L (46-116) C-Reactive Protein High Sensitivity 0.05 mg/dL (<1.0) Total Protein 5.9 g/dL (5.7-8.2) Albumin 3.9 g/dL (3.2-4.8) Urine Color Colorless (Yellow) Urine Clarity Clear (Clear) Urine pH 5.5 (5.0-9.0) Urine Specific [place] 1.004 (1.001-1.035) Urine Protein Negative (Negative) Urine Ketones Negative (Negative) Urine Blood 1+ /uL (Negative) Urine Nitrite Negative (Negative) Urine Bilirubin Negative (Negative) Urine Urobilinogen Normal mg/dL (Negative) Urine Leukocyte Esterase Negative /uL (Negative) Urine RBC 1 /hpf (0 - 3) Urine Microscopic WBC < 1 /HPF (0-3) Urine Squamous Epithelial Cells Few /hpf (<5) Urine Bacteria None seen /hpf (None Seen) Urine Glucose Normal mg/dL (Normal) Test 12/16/24 11:21 POC Glucose 125 mg/dl (70-106) Other Laboratory Tests 12/18/24 04:50 Brief Hx & Hospital Course: History of Present Illness Robert Ruffin is a 69-year-old male with past medical history of hypertension, hyperlipidemia, hypothyroidism, Parkinson's disease, dementia, and GERD, who came to the hospital due to generalized weakness. Patient lives with his daughter. She states [facility], when they did his blood pressure for the appointment it was reading in the 70's. [facility] instructed [facility]. Patient has been experiencing generalized weakness for the last couple of days prior to this, as well as abdominal pain and constipation. The daughter states in the past he has had weakness and dizziness from sitting to standing positions. She states when that has happened he is usually dehydrated. Course of hospitalization: Patient was given IV hydration. Patient's renal function improved. Given findings on CT scan, patient started on clear liquid diet, advanced to regular diet. Abdominal pain has resolved. Long discussion was made with the patient's daughter was bedside. Apparently, the patient has had syncopal episodes secondary to low blood pressure. Patient's blood pressure has also been noted to be labile at home. Discussion was made with the patient and daughter regarding his acute kidney injury secondary to poor oral intake of fluids. Patient's renal function improved has demonstrated to the patient and daughter with his recent lab work. Blood pressure has also been normalized. Patient is currently on losartan 25 mg p.o. at noon as the patient takes at home. Patient will follow up with his PCP in one week. Patient's daughter will reinstate home health services. Patient will be continued on antibiotic therapy with Flagyl 500 mg p.o. 3 times a day for additional five days. Patient is agreeable with discharge plan. All questions answered. Physical examination General: Alert and Oriented x3. No acute distress. Well-nourished. Eyes: EOMI. Anicteric. HENT: Moist mucous membranes. Lungs: Clear to auscultation bilaterally. No accessory muscle use. Cardiovascular: Regular rate and rhythm. No murmur. No JVD. Abdomen: Soft, non-tender and non-distended. No palpable masses. Extremities: No edema. Non-tender. Skin: No rashes or lesions. Warm. Neurologic: No focal neurological deficits. CN II-XII grossly intact, but not individually tested. Psychiatric: Cooperative. Appropriate mood and affect. Total time spent with patient discussing and formulating plan of care: 35 minutes. This medical document was created using an electronic medical record system with [employer] dictation system. Although this document has been carefully reviewed, there may still be some phonetic and typographical errors. These areas are purely typographical due to imperfections of the software programs, and do not reflect any compromise in the patient's medical care. Condition at Discharge: Fair Final Diagnosis/Problems List Acute enteritis Secondary diagnosis: -enteritis/colitis -dementia -probable BPH -primary hypertension -acute kidney injury, vasomotor nephropathy -hypovolemic hypotension -ileus ruled out Discharge Disposition: Home Discharge Instruct/Medications Diet: Regular Activity: No Restrictions, As Tolerated Medications: Flagyl 500 mg p.o. t.i.d. x5 days Continue all home medications Recommend to stop taking lactulose for constipation, and use MiraLax OTC Scheduled Amlodipine Besylate (Amlodipine Besylate), 1 TAB PO HS, (Reported) Carbidopa-Levodopa (Carbidopa/Levodopa Odt 25-250 mg), 1 TAB PO 5XD, (Reported) Carboxymethylcellulose Sodium (Lubricant Eye Drops), 0.5 % OP HS, (Reported) Citalopram Hydrobromide (Citalopram), 10 MG PO BID, (Reported) Gabapentin (Gabapentin), 200 MG GT BID, (Reported) Lactulose (Lactulose), 20 GM PO DAILY, (Reported) Lamotrigine (Lamotrigine), 50 MG PO DAILY, (Reported) Latanoprost (Latanoprost), 1 DROP EACHEYE QPM, (Reported) Levothyroxine Sodium (Levothyroxine Sodium), 1 TAB PO DAILY, (Reported) Losartan Potassium (Losartan Potassium), 1 TAB PO DAILY@LUNCH, (Reported) Memantine Hydrochloride (Memantine HCl), 5 MG PO BID, (Reported) Mirtazapine (Mirtazapine Oral Disintegrating Tablet), 1 TAB PO QPM, (Reported) Rotigotine (Neupro), 1 MG TD HS, (Reported) Terazosin Hcl (Terazosin Hcl), 1 MG PO HS, (Reported) 36 Discharge Statement: "Patient was advised to return to the ER or call 911 if any headaches, dizziness, shortness of breath, chest pain, abdominal pain, bleeding, fevers, or worsening of medical condition. Patient was counseled about treatment plan, medications, possible side effects, patientverbalized understanding. All questions were answered to the best of my ability. This discharge took greater then 30 minutes in planning, reviewing documentation, counseling the patient, and discussing with other team members." ASSESSMENT ASSESSMENT Assessment Acute enteritis Date of Service: Dec 18, 2024 Billing Provider: GREG ADAMS NP Common Visit Codes: [id number] INP/OBS CARE(HIGH) GREG ADAMS NP Dec 18, 2024 13:50
[2024-12-18] MEDS: POTASSIUM EFFERVESENT TAB 25 MEQ PO ONE (14:42)
[2024-12-19 08:07] LABS: Prostate Specific Antigen 1.0 ng/mL (0.0-4.0)
== END 2024-12-18 18:15 | disposition home or self-care (01) | DRG 391 ==
LOC: EDBD 11:06 → ER 11:06 → OVERFLOW 17:03 → WEST WING 22:31
PROVIDERS: ADMIT Nurse Practitioner Acute Care; ATTEND Nurse Practitioner Acute Care
DX: K52.9 Noninfective gastroenteritis and colitis, unspecified (principal); N17.0 Acute kidney failure with tubular necrosis; G20.A1 Parkinson's disease without dyskinesia, without mention of fluctuations; E86.0 Dehydration; I10 Essential (primary) hypertension; E89.0 Postprocedural hypothyroidism; F02.80 Dementia in other diseases classified elsewhere, unspecified severity, without behavioral disturbance, psychotic disturbance, mood disturbance, and anxiety; E78.5 Hyperlipidemia, unspecified; E86.1 Hypovolemia; N40.0 Benign prostatic hyperplasia without lower urinary tract symptoms; I95.9 Hypotension, unspecified; K21.9 Gastro-esophageal reflux disease without esophagitis
CPT/HCPCS: 36415; 74018; 74176; 80048; 80053; 81001; 82962; 84154; 85025; 85652; 86141; 93005; G0378; J3490

== ENCOUNTER 2024-12-28 10:02 | Emergency (ER) | payer OTHER, MEDICARE ==
[~2024-12-28] VITALS: Ht 180.3 cm; Wt 72.0 kg
[~2024-12-28 10:02] MED LIST: AMLO1TAB22 PO; CARB0.5D35 OP; CARB1TAB73 PO; CITA10TA6 PO; GAB100C GT; LACT10SO3 PO; LAMO25TA27 PO; LATA0.008 EACHEYE; LEVO75TA6 PO; LOSA-533 PO; MEMA1TAB3 PO; MIRT1TAB38 PO; ROTI1DIS TD; TERA2CAP79 PO
--- NOTE | 2024-12-28 10:34 | ED.PDOC ---
GI ASSESSMENT HPI Comments 69 y.o male presents to the ED via EMS for a chief complaint of diffused abdominal pain radiating to his back that started one hour prior to arrival. Patient reports recent sx of enteritis and was placed on antibiotics. Patient also complains of low blood pressure readings at home for the past couple of days but per EMS, vital signs wnl. Patient denies any nausea, vomiting, diarrhea, fever or chills. Chief Complaint: Abdominal Pain Time Seen by MD: 10:11 Reviewed Notes: Nurses Notes, Malted Milk Supervisor Notes, Medications, Allergies Allergies: Coded Allergies: NO KNOWN ALLERGIES (Unverified , 12/16/24) Home Meds Reported Medications Terazosin Hcl (Terazosin Hcl) 2 Mg Cap, 1 MG PO HS, CAP 12/16/24 Rotigotine (NEUPRO) 1 Mg/24 Hr Dis, 1 MG TD HS, DIS 12/16/24 Mirtazapine (Mirtazapine Oral Disintegrating Tablet) 15 Mg Tab, 1 TAB PO QPM, #30 TAB 3 Refills 12/16/24 Memantine Hydrochloride (Memantine HCl) 5 Mg Tab, 5 MG PO BID, TAB 12/16/24 Carboxymethylcellulose Sodium (LUBRICANT EYE DROPS) 0.5 % Prashanth, 0.5 % OP HS, DROP 12/16/24 Losartan Potassium (Losartan Potassium) 25 Mg Tab, 1 TAB PO DAILY@LUNCH, #90 TAB 1 Refill 12/16/24 Levothyroxine Sodium (Levothyroxine Sodium) 75 Mcg Tab, 1 TAB PO DAILY, #30 TAB 5 Refills 12/16/24 Latanoprost (LATANOPROST) 0.005 % Gladys, 1 DROP EACHEYE QPM, #7.5 ML 3 Refills 12/16/24 Lamotrigine (Lamotrigine) 25 Mg Tab, 50 MG PO DAILY, TAB 12/16/24 Lactulose (Lactulose) 10 Gm/15 Ml Gladys, 20 GM PO DAILY, ML 12/16/24 Gabapentin (Gabapentin) 100 Mg Cap, 200 MG GT BID, CAP 12/16/24 Citalopram Hydrobromide (Citalopram) 10 Mg Tab, 10 MG PO BID, TAB 12/16/24 Carbidopa-Levodopa (Carbidopa/Levodopa Odt 25-250 mg) 1 Tab Tab, 1 TAB PO 5XD, TAB 12/16/24 Amlodipine Besylate (Amlodipine Besylate) 5 Mg Tab, 1 TAB PO HS, #30 TAB 5 Refills 12/16/24 Information Source: Patient, Emergency Med Personnel Mode of Arrival: EMS Timing: Hours Duration: Since onset Prehospital treatment: Accucheck (125) Quality: Aching Vomitus: None Stool: Normal Severity: Moderate Recent: Antibiotics Pain Location: Diffuse Modifying Factors: Nothing Associated sign and symptoms: Abdominal Pain Past Medical History PAST MEDICAL HISTORY: GERD, High Lipids, Thyroid Surgical History: Hernia Repair Family History Family History: Reviewed,noncontributory to illness, No family hx of Cancer, No family hx of DM, No family hx of Heart vimal, No family hx of HTN, No family hx ofKidney vimal, No family hx of Liver vimal, No family hx of Lung vimal, No family hx of Stroke Social History Smoker: Non-Smoker Alcohol: Denies ETOH Use Drugs: Denies Drug Use Lives In: Home Constitutional: denies: chills, diaphoresis, fatigue, fever, malaise, sweats, weakness, others EENTM: denies: blurred vision, double vision, ear bleeding, ear discharge, ear drainage, ear pain, ear ringing, eye pain, eye redness, hearing loss, mouth pain, mouth swelling, nasal discharge, nose bleeding, nose congestion, nose pain, photophobia, tearing, throat pain, throat swelling, voice changes, others Respiratory: denies: cough, hemoptysis, orthopnea, SOB at rest, shortness of breath, SOB with excertion, stridor, wheezing, others Cardiovascular: denies: chest pain, dizzy spells, diaphoresis, Dyspnea on exertion, edema, irregular heart beat, left arm pain, lightheadedness, palpita tions, PND, syncope, others Gastrointestinal: reports: abdominal pain; denies: abdomen distended, blood streaked bowels, constipated, diarrhea, dysphagia, difficulty swallowing, hematemesis, melena, nausea, poor appetite, poor fluid intake, rectal bleeding, rectal pain, vomiting, others Genitourinary: denies: burning, dysuria, flank pain, frequency, hematuria, incontinence, penile discharge, penile sore, pain, testicle pain, testicle swelling, urgency, others Neurological: denies: dizziness, fainting, headache, left sided numbness, left sided weakness, numbness, paresthesia, pre-existing deficit, right sided numbness, right sided weakness, seizure, speech problems, tingling, tremors, weakness, others Musculoskeletal: reports: back pain; denies: gout, joint pain, joint swelling, muscle pain, muscle stiffness, neck pain, others Integumetry: denies: bruises, change in color, change in hair/nails, dryness, laceration, lesions, lumps, rash, wounds, others Allergic/Immunocompromised: denies: Difficulty Healing, Frequent Infections, Hives, Itching, others Hematologic/Lymphatic: denies: anemia, blood clots, easy bleeding, easy bruising, swollen glands, others Endocrine: denies: excessive hunger, excessive sweating, excessive thirst, excessive urination, flushing, intolerance to cold, intolerance to heat, unexplained weight gain, unexplained weight loss, others Psychiatric: denies: anxiety, bipolar disorder, depression, hopeless, panic disorder, schizophrenia, sleepless, suicidal, others All Other Systems: Reviewed and Negative Physical Exam General Appearance: Moderate Distress HEENT: Normal ENT Inspection, Pharynx Normal, TMs Normal Neck: Full Range of Motion, Non-Tender, Normal, Normal Inspection Respiratory: Chest Non-Tender, Lungs Clear, No Accessory Muscle Use, No Respiratory Distress, Normal Breath Sounds Cardiovascular: No Edema, No JVD, No Murmur, No Gallop, Normal Peripheral Pulses, Regular Rate/Rhythm Breast Exam: Deferred Gastrointestinal: Diffuse, No Organomegaly, No Pulsatile Mass, Normal Bowel Sounds, Soft, Tenderness Genitalia: Deferred Pelvic: Deferred Rectal: Deferred Extremities: No calf tenderness, Normal capillary refill, Normal inspection, Normal range of motion, Non-tender, No pedal edema Musculoskeletal : Apperance: Normal Neurologic: Alert, day spa manager II-XII nml as Tested, No Motor Deficits, Normal Affect, Normal Mood, No Sensory Deficits Cerebellar Function: Normal Reflexes: Normal Skin: Dry, Normal Color, Warm Lymphatic: No Adenopathy Was a procedure done? Was a procedure done?: No GI differential Dx Differential Diagnosis: Gastritis/PUD, Gastroenteritis, Inflammatory BD, Electrolyte Imbalance, Food Poisoning, Viral X-Ray, Labs, Meds, VS Vital Signs Date Time Temp Pulse Resp B/P (MAP) Pulse Ox O2 Delivery O2 Flow Rate FiO2 12/28/24 12:26 98.3 65 16 103/63 (76) 94 98.3 12/28/24 12:26 65 16 94 Room Air 12/28/24 10:29 97.7 74 20 122/77 (92) 100 97.7 12/28/24 10:28 66 Lab Test 12/28/24 10:49 Range/Units White Blood Count 6.3 4.4-10.8 10^3/uL Red Blood Count 3.94 L 4.5-5.90 10^6/uL Hemoglobin 12.4 L 13.5-17.5 g/dL Hematocrit 36.0 L 41.0-53.0 % Mean Corpuscular Volume 91.2 80.0-100.0 fL Mean Corpuscular Hemoglobin 31.4 28.0-32.0 pg Mean Corpuscular Hemoglobin Concent 34.4 32.0-36.0 g/dL Red Cell Distribution Width 13.1 11.8-14.3 % Platelet Count 174 140-450 10^3/uL Mean Platelet Volume 9.6 6.9-10.8 fL Neutrophils (%) (Auto) 65.7 37.0-80.0 % Lymphocytes (%) (Auto) 22.3 10.0-50.0 % Monocytes (%) (Auto) 8.3 0.0-12.0 % Eosinophils (%) (Auto) 3.2 0.0-7.0 % Basophils (%) (Auto) 0.5 0.0-2.0 % Neutrophils # (Auto) 4.2 1.6-8.6 10 ^3/uL Lymphocytes # (Auto) 1.4 0.4-5.4 10 ^3/uL Monocytes # (Auto) 0.5 0-1.3 10 ^3/uL Eosinophils # (Auto) 0.2 0-0.8 10 ^3/uL Basophils # (Auto) 0 0-0.2 10 ^3/uL Nucleated Red Blood Cells 0.0 % Sodium Level 142 136-145 mmol/L Potassium Level 3.9 3.5-5.1 mmol/L Chloride Level 109 H 98-107 mmol/L Carbon Dioxide Level 25 20-31 mmol/L Anion Gap 8 5-15 Blood Urea Nitrogen 26 H 9-23 mg/dL Creatinine 1.38 H 0.700-1.30 mg/dL Glomerular Filtration Rate Calc 55 >90 mL/min BUN/Creatinine Ratio 18.8 10.0-20.0 Serum Glucose 107 H 74-106 mg/dL Calcium Level 8.8 8.7-10.4 mg/dL Total Bilirubin 0.5 0.2-1.0 mg/dL Aspartate Amino Transferase (AST) 15 13-40 U/L Alanine Aminotransferase (ALT) < 9 7-40 U/L Alkaline Phosphatase 52 46-116 U/L Total Protein 6.2 5.7-8.2 g/dL Albumin 4.2 3.2-4.8 g/dL Lipase 40 12-53 U/L The CAT scan of the abdomen and pelvis shows: IMPRESSION: Large volume stool throughout the colon. Correlate for constipation. Rectal wall thickening. Correlate for proctocolitis. Recommend GI consultation to exclude underlying rectal/ colonic lesion. Nonobstructing bilateral renal calculi. Right iliac sclerotic changes which can be secondary Paget's disease with other considerations including osteoblastic metastases. Mesenteric edema. Trace free pelvic fluid. The patient's urine test is pending The CBC is within normal limits The chemistry panel shows a BUN of 26 a creatinine of 1.3 The patient abdominal pain The patient is being admitted Images Reviewed?: Images reviewed and evaluated by me Time of 1ST Reevaluation: 10:34 Reevaluation 1ST: Unchanged Patient Education/Counseling: Diagnosis, Treatment, Prognosis Family Education/Counseling: No Family Present SEPSIS Sepsis Screen Physician Orders Ct Ab Pel Wo Con-No Oral Or Iv (12/28/24 10:19) Heplock Iv (12/28/24 10:19) Urinalysis (12/28/24 10:19) Vital Signs Date Time Temp Pulse Resp B/P (MAP) Pulse Ox O2 Delivery O2 Flow Rate FiO2 12/28/24 12:26 98.3 65 16 103/63 (76) 94 98.3 12/28/24 12:26 65 16 94 Room Air 12/28/24 10:29 97.7 74 20 122/77 (92) 100 97.7 12/28/24 10:28 66 Laboratory Tests Test 12/28/24 10:49 White Blood Count 6.3 10^3/uL (4.4-10.8) Departure 1 Departure Time of Disposition: 13:28 Impression: Primary Impression: Intractable abdominal pain Additional Impression: Non-specific colitis Disposition: 09 ADMITTED INPATIENT Admit to: Med Surg Condition: Fair Critical Care Note Critical Care Time?: No Stability Stability form required: Yes Unstable for transfer: ED Physician Assesment (Clinical assesment) I personally scribed for EVETTE CHAKRABORTY MD ([email or web address]) on 12/28/24 at 10:34. Electronically submitted by Lima Prado ([facility]). EVETTE CHAKRABORTY MD Dec 28, 2024 10:34
--- NOTE | 2024-12-28 10:49 | ECG ---
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
[2024-12-28 11:09] LABS: Hematocrit 36.0 % (41.0-53.0); Hemoglobin 12.4 g/dL (13.5-17.5); Mean Corpuscular Hemoglobin 31.4 pg (28.0-32.0); Mean Corpuscular Volume 91.2 fL (80.0-100.0); Nucleated Red Blood Cells % 0.0 %
[2024-12-28 11:24] LABS: Albumin 4.2 g/dL (3.2-4.8); Alkaline Phosphatase 52 U/L (46-116); Anion Gap 8 (5-15); BUN/Creatinine Ratio 18.8 (10.0-20.0); Bilirubin, Total 0.5 mg/dL (0.2-1.0); Calcium 8.8 mg/dL (8.7-10.4); Carbon Dioxide 25 mmol/L (20-31); Lipase 40 U/L (12-53); Potassium 3.9 mmol/L (3.5-5.1); Sodium 142 mmol/L (136-145); Total Protein 6.2 g/dL (5.7-8.2)
[2024-12-28 11:29] LABS: Chloride 109 mmol/L (98-107)
[2024-12-28 11:30] LABS: Alanine Aminotransferase < 9 U/L (7-40); Blood Urea Nitrogen 26 mg/dL (9-23); Glucose 107 mg/dL (74-106)
--- NOTE | 2024-12-28 12:24 | DVH ---
Indication: PAIN Technique: CT axial images of the abdomen and pelvis are obtained without contrast. Coronal and sagit ruddy reformats were obtained. Radiation Dose Information: CTDI volume is 7.05 mGy. Dose-length product is 404.31 mGy*cm Comparison: CT CT AB PEL WO CON-NO ORAL OR IV on DOS: 12/16/24 FINDINGS: There is limited interpretation of the abdomen and pelvis without administration of intravenous contr ast. The lung bases demonstrate atelectasis. Heart normal in size. Coronary artery calcification disease. Adrenal glands, spleen, pancreas unremarkable in shape. Liver unremarkable in shape. No CT evidence for cholelithiasis. No hydronephrosis. Nonobstructing right renal calculi up to 2 mm. Nonobstructing left renal calculi up to 2 mm. Stomach is partially distended. The small bowel loops are normal in caliber. Rectal wall thickening. Large volume stool throughout the colon. Appendix not well characterized. Abdominal aortic atherosclerotic disease. Bladder distended. Trace free pelvic fluid. No inguinal ly mphadenopathy. Extensive right iliac bone sclerotic changes extending to the right inferior pubic ramus. Moderate to advanced lumbar degenerative disc disease L4-5, L5-S1. IMPRESSION: Large volume stool throughout the colon. Correlate for constipation. Rectal wall thickening. Correlate for proctocolitis. Recommend GI consultation to exclude underlyin g rectal/ colonic lesion. Nonobstructing bilateral renal calculi. Right iliac sclerotic changes which can be secondary Paget's disease with other considerations includ ing osteoblastic metastases. Mesenteric edema. Trace free pelvic fluid. Other findings as described
[2024-12-28 15:42] VITALS: BP 103/51; TEMP 97.5
[2024-12-28] MEDS: PANTOPRAZOLE 40 MG/10 ML VIAL INJ IV ONE (16:00)
[2024-12-28 16:08] VITALS: PULSE 54; RESP 18; O2SAT 99
== END 2024-12-28 16:15 | disposition home or self-care (01) ==
LOC: ER 10:02 → EDBD 10:02 → ER 16:15
DX: K52.9 Noninfective gastroenteritis and colitis, unspecified (principal); R10.84 Generalized abdominal pain; E78.5 Hyperlipidemia, unspecified; K21.9 Gastro-esophageal reflux disease without esophagitis; Z98.890 Other specified postprocedural states; Z79.890 Hormone replacement therapy; Z79.899 Other long term (current) drug therapy
CPT/HCPCS: 36415; 74176; 80053; 83690; 85025; 93005; 96374; 99285; J2470